=== PATIENT | male | born 1960 | race Caucasian/White ===

== ENCOUNTER 2019-07-19 21:48 | Inpatient (IN) | payer OTHER ==
[~2019-07-19] VITALS: Ht 172.7 cm; Wt 77.1 kg
[2019-07-19 22:04] VITALS: Ht 172.7 cm; Wt 77.1 kg
--- NOTE | 2019-07-19 22:24 | NUR ---
PT BIB BY [facility] DUE TO SYNCOPAL EVENT AT AT HOME AT APPROX 1930. PT WAS GIVEN TORADOL FOR 1ST TIME BY INFUSION NURSE. PER MEDIC, SYNCOPAL EPISODE WAS NOT WITNESSED, UNABLE TO ASSESS FOR LOC. PER MEDIC PT IS MORE LETHARGIC COMPARED TO NORMAL BASELINE. PER MEDIC PT WAS HYPOTENSIVE LAST BP 104/53 AND 96/61. PT HAS LIVER CANCER WITH VISIBLE JAUNDICED SKIN THROUGHOUT. PER MEDIC PT GIVEN 300CC BOLUS AND 4MG ZOFRAN. PT IS ALERT AND FOLLOWING SIMPLE COMMANDS BUT IS EXTREMELY LETHARGIC. PT'S SPEECH IS SLOW BUT ATTEMPTS TO RESPOND WITH SIMPLE RESPONSES SUCH YES AND NO WITH HEAD KNODDING.
[2019-07-19 22:41] LABS: CALCIUM 7.9 mg/dL (8.5-10.1); CARBON DIOXIDE 25.4 mmol/L (21-32); CHLORIDE SERUM 102 mmol/L (98-107); CREATININE SERUM 1.5 mg/dL (0.7-1.3); GFR1 51 mL/min; GLUCOSE SERUM 127 mg/dL (74-106); POTASSIUM SERUM 3.6 mmol/L (3.5-5.1); SODIUM SERUM 136 mmol/L (136-145)
[2019-07-19 22:45] LABS: PLATELET COUNT 234 x10^3mcL (130-400)
[2019-07-19 22:49] LABS: ALKALINE PHOSPHATASE 203 U/L (46-116); ALT/SGPT 76 U/L (16-63); AST/SGOT 111 U/L (15-37)
[2019-07-19 22:52] LABS: ALBUMIN 2.1 g/dL (3.4-5.0); TOTAL PROTEIN, SERUM 4.6 g/dL (6.4-8.2)
[2019-07-19 22:53] LABS: BILIRUBIN TOTAL 13.54 mg/dL (0.20-1.00)
[2019-07-19 22:55] LABS: RED CELL DISTRIBUTION WIDTH 19.2 % (11.5-14.5)
[2019-07-19 23:04] LABS: CK-MB 0.8 ng/mL (0-3.6)
[2019-07-19 23:06] LABS: BAND NEUTROPHIL 5 % (0-10); SEGMENTED NEUTROPHILS 75 % (37-75)
[2019-07-19 23:07] LABS: PLATELET MORPHOLOGY PLATELETS NORMAL; rbc morphology (normal/abnorm) ABNORMAL (NORMAL)
--- NOTE | 2019-07-19 23:40 | NUR ---
REQUESTED URINE SAMPLE FROM PATIENT, STATES HE WILL TRY TO GO. UNABLE TO DO SO AT THIS TIME. PROVIDED PATIENT WITH WATER AND WILL ASK AGAIN LATER IF HE IS ABLE TO PROVIDE URINE SAMPLE. PT STATED HE WOULD PREFER TO ATTEMPT GIVING A SAMPLE INSTEAD OF RECEIVING A STRAIGHT CATH.
--- NOTE | 2019-07-19 23:50 | NUR ---
PT NOTED WITH TWITCHING. PT REPORTS BODY TWITCHING STARTED AT HOME EARLIER TODAY.
[2019-07-20] VITALS (7 sets, daily range): BP systolic 96–117; BP diastolic 46–66
--- NOTE | 2019-07-20 00:16 | NUR ---
PT REPORTS NAUSEAU AND WANTS TO VOMIT. GAVE ZOFRAN PER PRN ORDERS ON EMAR.
--- NOTE | 2019-07-20 00:20 | NUR ---
PT IS RUNNING HYPOTENSIVE WITH BP OF 76/29 MAP OF 39. NEW VITALS SHOW 105/25 WITH MAP OF 51. AWAITING BLOOD FROM BLOOD BANK.
--- NOTE | 2019-07-20 01:25 | NUR ---
CALLED REPORT TO CLIFTON HERNÁNDEZ IN [facility], PER HAIDER HERNÁNDEZ SHE TOOK REPORT TO ASSUME CARE.
--- NOTE | 2019-07-20 02:10 | NUR ---
NEW ADMISSION FROM ED, ARRIVED AT 0140. CC: GENERALIZED WEAKNESS, SYNCOPE. DX: ANEMIA. PT A/O X 4, ABLE TO MAKE NEEDS KNOWN, CLEAR SPEECH, NO FACIAL DROOP. PT DENIES HEADACHE. PT IS TELE MONITOR #9, NSR HR 77 BPM. PT DENIES CHEST PAIN/ CHEST PRESSURE. PULSES PALPABLE, NO EDEMA. LUNG SOUNDS CTA, ON RA, NO RESPIRATORY DISTRESS AND NO SOB AT THIS TIME. ACTIVE BS X 4 QUADS. ABD IS SOFT AND ROUND AND NON TENDER AT THIS TIME. LAST BM 07/19/19 AND PT REPORTED IT WAS BLACK AND PASTY. DENIES N/V AT THIS TIME. PT HAS GENERALIZED WEAKNESS. SKIN IS INTACT. PT HAS JAUNDICE TO FACE, CHEST, BUE/ BLE. IV TO LAC 20 GARRET INTACT WITH BLOOD TRANSFUSION INFUSING. NO REDNESS OR INFILTRATION. IV TO RAC 20 GARRET INTACT AND FLUSHING WELL, SALINE LOCK. PT IS CALM AND COOPERATIVE. NO ACUTE DISTRESS AT THIS TIME, NO COMPLAINTS OF PAIN. CALL BUTTON WITHIN REACH, WILL CONTINUE TO MONITOR.
--- NOTE | 2019-07-20 03:10 | NUR ---
1ST UNIT OF BLOOD TRANSFUSION COMPLETED. VITAL SIGNS STABLE: BP-121/56 (69), HR-66, 02 SAT- 95%, RR-18, TEMP- 96.7. NO ADVERSE REACTIONS AT THIS TIME. NO ACUTE DISTRESS NOTED, CALL LIGHT WITHIN REACH, WILL CONTINUE TO MONITOR.
[2019-07-20 03:27] LABS: microscopic required? NO
[2019-07-20 03:52] LABS: urine erythrocyte NEGATIVE (NEGATIVE)
--- NOTE | 2019-07-20 04:23 | NUR ---
SPOKE WITH DR. ROY AND RECEIVED ORDERS TO TRANSFUSE [address] ROY NO DIET ORDER AT THIS TIME. WILL CARRY OUT ORDERS.
--- NOTE | 2019-07-20 06:38 | NUR ---
2ND UNIT OF PRBC BLOOD TRANSFUSION STARTED AT 0630. VERIFIED WITH SECOND RN. VITALS WNL: BP-109/50 (71), HR- 75, O2 SAT- 95%, TEMP- 96.6, RR- 18. NO ADVERSE REACTIONS AT THIS TIME. CALL BUTTON WITHIN REACH, WILL CONTINUE TO MONITOR.
--- NOTE | 2019-07-20 06:59 | NUR ---
POST BLOOD TRANSFUSION 15 MINUTE VITALS FOLLOWS: BP- 107/49, TEMP- 97.3, HR- 72 BPM, RR- 18 BPM, O2 SAT 99%. NO ADVERSE REACTION AT THIS TIME. RATE INCREASED TO 120 ML/HR. NO ACUTE DISTRESS AT THIS TIME. WILL CONTINUE TO MONITOR.
[2019-07-20 07:20] LABS: ALKALINE PHOSPHATASE 191 U/L (46-116); ALT/SGPT 74 U/L (16-63); AST/SGOT 128 U/L (15-37); CALCIUM 7.7 mg/dL (8.5-10.1); CARBON DIOXIDE 24.1 mmol/L (21-32); CHLORIDE SERUM 105 mmol/L (98-107); CREATININE SERUM 1.3 mg/dL (0.7-1.3); GFR1 > 60 mL/min; GLUCOSE SERUM 112 mg/dL (74-106); MAGNESIUM 1.9 mg/dL (1.8-2.4); POTASSIUM SERUM 3.9 mmol/L (3.5-5.1); SODIUM SERUM 137 mmol/L (136-145)
[2019-07-20 07:21] LABS: ALBUMIN 2.1 g/dL (3.4-5.0); TOTAL PROTEIN, SERUM 4.5 g/dL (6.4-8.2)
[2019-07-20 07:26] LABS: BILIRUBIN TOTAL 14.48 mg/dL (0.20-1.00)
--- NOTE | 2019-07-20 07:37 | NUR ---
PT IS AWAKE IN BED, A/O X 4. BLOOD TRANSFUSION 2/3 INFUSING TO LAC, NO ADVERSE REACTION AT THIS TIME. IV TO RAC PATENT, LR INFUSING AT 80 ML/HR. FALL PRECAUTIONS IN PLACE, BED ALARM ON. PT NPO AT THIS TIME. CONTINUITY OF CARE ENDORSED TO AM NURSE. NO ACUTE DISTRESS AT THIS TIME. ALL QUESTIONS ADDRESSED.
--- NOTE | 2019-07-20 07:45 | NUR ---
RECEIVED PATIENT RESTING IN BED, NO ACUTE DISTRESS NOTED. PATIENT DENIES CP, TELE MONITOR IN PLACE. DENIES SOB, LUNG SOUNDS CTA ON ROOM AIR. PATIENT REPORTS DARK PASTY STOOL, AND REPORT ABDOMINAL DISCOMFORT. PATIENT STATES HE GETS NAUSEA WHEN EATING, DENIES N/V AT THIS TIME. JAUNDICE IS NOTED. PATIENT REPORTS SOME DIZZINESS WHEN GETTING UP, PATIENT MADE AWARE TO CALL FOR ASSISTANCE WHEN GETTING UP. CALL LIGHT PLACED WITHIN REACH. BLOOD INFUSING TO LAC, IV SITE CDI&PATENT. LR INFUSING TO RAC AT 80ML/HR, IV SITE CDI& PATENT. ALL NEEDS MET AT THIS TIME. WILL CONTINUE TO [facility].
[2019-07-20 07:53] LABS: PLATELET COUNT 234 x10^3mcL (130-400)
[2019-07-20 07:57] LABS: RED CELL DISTRIBUTION WIDTH 16.5 % (11.5-14.5)
[2019-07-20 09:58] LABS: MONOCYTE 2 % (0-7); SEGMENTED NEUTROPHILS 70 % (37-75); rbc morphology (normal/abnorm) ABNORMAL (NORMAL)
--- NOTE | 2019-07-20 10:30 | NUR ---
PACKED CELLS LEUKOPOOR GIVEN AT THIS TIME. VITAL SIGNS STABLE; BP:119/67 HR 76 TEMP: 97.7 PULSE OX:99%. VERIFIED WITH RNRLola GÓMEZ. WILL CONTINUE TO MONITOR, WILL REASSESS VS IN 15MIN.
--- NOTE | 2019-07-20 10:30 | NUR ---
DR. ROY AWARE PATIENT H/H: 5.9/17; BILI: 14.48; INR 4.6. NO FURTHER ORDERS AT THIS TIME, WILL CONTINUE TO MONITOR.
--- NOTE | 2019-07-20 10:45 | NUR ---
BLOOD HAS BEEN INFUSING FOR 15 MIN AT 50ML/HR, NO ADVERSE REACTION NOTED. VITAL SIGNS STABLE; BP:102/55, HR:78,TEMP:97.7,RESP:19,PULSE OX:98%. ALL NEEDS MET AT THIS TIME, WILL CONTINUE TO MONITOR. INCREASED BLOOD TRANSFUSION TO 120ML/HR, IV SITE CDI & PATENT.
--- NOTE | 2019-07-20 12:30 | NUR ---
FRESH FROZEN PLASMA STARTED AT THIS TIME, VITAL SIGNS STABLE. VERIFIED WITH EDGAR GÓMEZ. WILL REASSESS VITAL SIGNS IN 15MIN AND CONTINUE TO MONITOR.
--- NOTE | 2019-07-20 12:50 | NUR ---
REASSESS VITAL SIGNS 15MIN AFTER FRESH FROZEN PLASMA GIVEN, VITAL SIGNS STABLE. PATIENT IS BEING TRANSFERRED TO GI LAB, REPORT GIVEN. GI NURSE AWARE SHE IS TO REASSESS VS AFTER PRBC & FFP ARE COMPLETED. WILL FOLLOW UP.
[2019-07-20 15:25] LABS: BASOPHIL % 0.4 % (0-2); PLATELET COUNT 183 x10^3mcL (130-400)
[2019-07-20 15:38] LABS: RED CELL DISTRIBUTION WIDTH 15.8 % (11.5-14.5)
--- NOTE | 2019-07-20 15:50 | NUR ---
MADE AWARE HGB WAS 5.8 & SECOND HGB WAS 6.1 & HCT 16.5. DR. WHEELER GAVE TORB TO CHARGE NURSE REVA FOR 2 MORE UNITS OF PRBC. REVA WILL CARRY OUT ORDERS AT THIS TIME.
[2019-07-20 15:58] LABS: rbc morphology (normal/abnorm) ABNORMAL (NORMAL)
[2019-07-20 16:02] LABS: rbc morphology (normal/abnorm) ABNORMAL (NORMAL)
--- NOTE | 2019-07-20 18:10 | NUR ---
FRESH FROZEN PLASMA STARTED AT THIS TIME, VITAL SIGNS STABLE. VERIFIED WITH CHARGE NURSE REVA. WILL REASSESS VS IN 15MIN.
--- NOTE | 2019-07-20 19:20 | NUR ---
ENDORSED REPORT TO NIGHT RN.
--- NOTE | 2019-07-20 20:15 | NUR ---
Awake and verbally responsive. No respiratory distress noted on room air. Denies pain. Denies n/v. FFP transfusion completed. No adverse reaction noted. Will transfuse 2 units PRBC tonight. Pt.aware. Will cont.to monitor. Call light within reach.
--- NOTE | 2019-07-20 22:00 | NUR ---
First unit PRBC started. No adverse reaction noted. Will cont.to monitor. Ambulated to the BR. Denies dizziness. Safety maintained.
--- NOTE | 2019-07-21 00:45 | NUR ---
First unit PRBC completed.
--- NOTE | 2019-07-21 01:20 | NUR ---
Second unit PRBC ongoing at this time. No adverse raction noted. Will cont.to monitor.
--- NOTE | 2019-07-21 04:25 | NUR ---
Blood transfusion completed. No untoward reaction noted. Denies pain. Afebrile. In no apparent distress.
[2019-07-21 04:27] VITALS: BP 112/74
[2019-07-21 05:01] VITALS: BP 125/68
[2019-07-21 06:32] LABS: BASOPHIL % 0.2 % (0-2); PLATELET COUNT 197 x10^3mcL (130-400)
[2019-07-21 06:44] LABS: RED CELL DISTRIBUTION WIDTH 15.8 % (11.5-14.5)
[2019-07-21 06:52] LABS: ALKALINE PHOSPHATASE 204 U/L (46-116); ALT/SGPT 82 U/L (16-63); AST/SGOT 148 U/L (15-37); CARBON DIOXIDE 25.1 mmol/L (21-32); CHLORIDE SERUM 107 mmol/L (98-107); GFR1 > 60 mL/min; GLUCOSE SERUM 91 mg/dL (74-106); POTASSIUM SERUM 3.2 mmol/L (3.5-5.1); SODIUM SERUM 141 mmol/L (136-145)
[2019-07-21 07:23] LABS: ALBUMIN 2.3 g/dL (3.4-5.0); TOTAL PROTEIN, SERUM 4.9 g/dL (6.4-8.2)
[2019-07-21 07:24] LABS: BILIRUBIN TOTAL 17.8 mg/dL (0.20-1.00)
--- NOTE | 2019-07-21 07:50 | NUR ---
RECEIVED PATIENT RESTING IN BED, NO ACUTE DISTRESS NOTED. PATIENT DENIES PAIN. PATIENT REPORTS ABDOMINAL DISCOMFORT AFTER DRINKING OR EATING. PATIENT DENIES NAUSEA/VOMITTING AT THIS TIME. LUNG SOUNDS CTA, ON 2L NC. PT REPORTS PREVIOUS STOOL BLACK & PASTY. PATIENT REPORTS SLIGHT DIZZINESS WHEN AMBULATING, EDUCATED PATIENT TO STAND SLOWLY AND TO CALL FOR ASSISTANCE WHEN AMBULATING. JAUNDICE SKIN NOTED. IV TO LAC/RAC CDI&PATENT. LR INFUSING TO RAC AT 80ML/HR, IV SITE CDI&PATENT. CALL LIGHT WITHIN REACH, BED IN LOW POSITION, WILL CONTINUE TO MONITOR.
[2019-07-21 09:20] VITALS: BP 108/75
--- NOTE | 2019-07-21 09:30 | NUR ---
DR. SHIN MADE AWARE PATIENTS K WAS 3.2, DR. SHIN STATED HE WILL ADD K, WILL CARRY OUT ORDERS WHEN PLACED.
[2019-07-21 10:59] VITALS: BP 110/64
--- NOTE | 2019-07-21 11:52 | NUR ---
PATIENT RECEIVED COPY OF DISCHARGE INSTRUCTIONS, PATIENT UNDERSTANDS D/C INSTRUCTIONS & PLAN OF CARE, INCLUDING MEDICATIONS & FOLLOW UP CARE. ALL QUESTIONS AND CONCERNS ADDRESSED. IV TO RAC REMOVED, CATH INTACT. TELE MONITOR AND ARMBANDS REMOVED. PATIENT AWARE OF TRANFSFER TO [facility] AT 1300. WILL CONTINUE TO MONITOR PATIENT.
[2019-07-21 12:18] VITALS: BP 110/64
--- NOTE | 2019-07-21 13:00 | NUR ---
REPORT GIVEN TO EDGAR CHAHAL AT [facility].
== END 2019-07-21 13:15 | disposition short-term general hospital (02) | DRG 377 ==
LOC: ED 21:48 → DU 23:36
PROVIDERS: Emergency Medicine; Internal Medicine; Internal Medicine Gastroenterology; ADMIT Internal Medicine Pulmonary Disease
PROC: 0W3P8ZZ Control Bleeding in Gastrointestinal Tract, Via Natural or Artificial Opening Endoscopic (ICD-10-PCS; 2019-07-20)
PROC: 30233K1 Transfusion of Nonautologous Frozen Plasma into Peripheral Vein, Percutaneous Approach (ICD-10-PCS; principal; 2019-07-20 12:00)
PROC: 30233N1 Transfusion of Nonautologous Red Blood Cells into Peripheral Vein, Percutaneous Approach (ICD-10-PCS; 2019-07-20 12:00)
DX: K92.2 Gastrointestinal hemorrhage, unspecified (principal); K83.1 Obstruction of bile duct; D68.9 Coagulation defect, unspecified; C24.0 Malignant neoplasm of extrahepatic bile duct; D62 Acute posthemorrhagic anemia; N17.9 Acute kidney failure, unspecified; E86.0 Dehydration
CPT/HCPCS: 43235; C9113; G0378; J0171; J1200; J1610; J2250; J2310; J2405; J2916; J3010; J3430; J3490; J7030; J7040; J7050; J7120; P9016; P9059; Q0092